=== PATIENT | female | born 2000 | race African-American/Black ===

== ENCOUNTER 2020-04-08 18:59 | Inpatient (IN) ==
[2020-04-08 19:30] LABS: Bacteria,Urine Occasional /HPF (Few); Bilirubin,Urine Negative (Negative); Blood, Urine Negative (Negative); Glucose,Urine (UA) Negative (Negative); Ketones,Urine Negative (Negative); Mucus,Urine Occasional /LPF (Occasional); Nitrite,Urine Negative (Negative); Protein,Urine Negative; RBC,Urine 2 /HPF (0-4); Squamous Epithelial Cell,Urine Occasional /HPF (0-10); Urine Appearance CLEAR (Clear); Urine Color Yellow (Yellow); Urine Specific Gravity 1.014 (1.001-1.035); WBC,Urine 3 /HPF (0-6)
[2020-04-08] MEDS ORDERED: ONDANSETRON 4 MG/2 ML VIAL IV PRN (19:46)
[2020-04-08] MEDS ORDERED: MEPERIDINE 50 MG/1 ML VIAL IV PRN (19:46)
[2020-04-08] MEDS ORDERED: LACTATED RINGERS 1,000 ML IV SCH (20:00)
[2020-04-08 20:18] LABS: Basophils % 0.3 % (0.0-0.8); Eosinophils # 0.3 10*3/uL (0.0-0.87); Eosinophils % 3.1 % (0.00-10.9); Hematocrit 29.3 VOL% (35.7-47.0); Hemoglobin 9.3 GM/DL (12.0-16.0); Immature Granulocytes % 1.4 %; Immature Granulocytes Absolute 0.15 #; Lymphocytes # 2.3 10*3/uL (1.4-4.0); Lymphocytes % 21.4 % (21.3-54.2); Mean Corpuscular HGB Conc 31.7 GM/DL (32-36); Mean Corpuscular Volume 75.7 FL (87-102); Mean Platelet Volume 11.3 FL (9.6-12.0); Monocytes % 9.1 % (1.7-12.7); Neutrophils % 64.7 % (38.7-73.9); Platelet Count 230 T/CUMM (130-400); Red Blood Count 3.87 MC/CUMM (3.8-5.5); Red Cell Distribution Width 14.5 % (9.3-17.3); White Blood Count 10.5 T/CUMM (4-12)
[2020-04-08] MEDS ORDERED: SODIUM CHLORIDE 0.9% 100 ML IV ONE (20:33)
[2020-04-08] MEDS ORDERED: AMPICILLIN 2,000 MG VIAL ONE (20:33)
[2020-04-08] MEDS ORDERED: AMPICILLIN INJ 2,000 MG in SODIUM CHLORIDE 0.9% 100 ML IV ONE (20:40)
[2020-04-08 20:43] LABS: Alanine Aminotransferase < 9 U/L (13-56); Albumin 2.6 G/DL (3.4-5.0); Alkaline Phosphatase 157 U/L (45-117); Aspartate Amino Transferase 9 U/L (0-37); Blood Urea Nitrogen 9 MG/DL (7-18); Calcium 8.9 MG/DL (8.5-10.1); Estimated Glom Filtration Rate 135 ML/MIN; Glucose 72 MG/DL (74-106); Osmolality,Calculated 270.8 MOS/KG (273-304); Total Protein 7.4 G/DL (6.4-8.3)
[2020-04-08] MEDS: BUTORPHANOL 2 MG/ML VIAL IV PRN ×2 (23:12→23:43)
[2020-04-09] MEDS ORDERED: CITRIC ACID/SODIUM CITRATE 30 ML UDCUP PO PRN (00:04)
[2020-04-09] MEDS ORDERED: FAMOTIDINE 20 MG/2 ML VIAL IV PRN (00:05)
[2020-04-09] MEDS ORDERED: ePHEDrine 50 MG/ML VIAL IV PRN (00:06)
[2020-04-09] MEDS ORDERED: fentaNYL 2 MCG/ROPIV 0.2% EPID 100 ML EPIDURAL SCH (00:30)
[2020-04-09] MEDS ORDERED: AMPICILLIN INJ 1,000 MG in SODIUM CHLORIDE 0.9% 100 ML IV SCH (00:30)
[2020-04-09] MEDS: BUTORPHANOL 2 MG/ML VIAL IV PRN (00:43)
[2020-04-09] MEDS ORDERED: OXYTOCIN/LR 20 UNIT/1,000 ML BAG IV ONE ×2 (01:04→01:17)
[2020-04-09] MEDS ORDERED: miSOPROStoL 200 MCG TABLET ONE (01:04)
[2020-04-09] MEDS ORDERED: CARBOPROST TROMETHAMINE 250 MCG/ML AMP IM ONE (01:05)
[2020-04-09] MEDS ORDERED: METHYLERGONOVINE 0.2 MG/1 ML AMP ONE (01:05)
[2020-04-09] MEDS ORDERED: LIDOCAINE 1% 50 ML VIAL ONE (01:24)
[2020-04-09 01:44] LABS: Cord Arterial Blood HCO3 22.8 MMOL/L
[2020-04-09 01:46] LABS: Cord Venous Blood PCO2 38.1 MMHG; Cord Venous Blood PO2 26.5 MMHG
[2020-04-09] MEDS ORDERED: ACETAMINOPHEN 325 MG TABLET PO PRN (02:50)
[2020-04-09] MEDS ORDERED: MEASLES/MUMPS/RUBELLA VACCINE 0.5 ML VIAL SUBCUT ONE (02:50)
[2020-04-09] MEDS ORDERED: DIPH/TET/ACEL PERT BOOSTER VACCINE 0.5 ML VIAL IM ONE (02:50)
[2020-04-09] MEDS ORDERED: HYDROCORTISONE 2.5% RECTAL CREAM 30 GM TUBE TOP PRN (02:50)
[2020-04-09] MEDS ORDERED: oxyCODONE/ACETAMINOPHEN 5-325 MG TABLET PO PRN ×2 (02:50)
[2020-04-09] MEDS ORDERED: LANOLIN 50% CREAM 0.3 OZ TUBE TOP PRN (02:50)
[2020-04-09] MEDS ORDERED: BISACODYL 10 MG SUPP RECTAL PRN (02:50)
[2020-04-09] MEDS ORDERED: RHO(D) IMMUNE GLOBULIN 300 MCG SYRINGE IM ONE (02:50)
[2020-04-09] MEDS ORDERED: WITCH HAZEL PADS 100/JAR TOP PRN (02:50)
[2020-04-09] MEDS ORDERED: BENZOCAINE 20%/MENTHOL 0.5% SPRAY 56 GM CAN TOP PRN (02:50)
[2020-04-09] MEDS: MULTIVITAMIN (PRENATAL) TABLET PO SCH (08:17)
[2020-04-09] MEDS: DOCUSATE SODIUM 100 MG CAPSULE PO SCH ×2 (08:17→22:32)
[2020-04-09] MEDS ORDERED: INFLUENZA VIRUS VACCINE 0.5 ML SYRINGE IM ONE (10:00)
[2020-04-09] MEDS: IBUPROFEN 800 MG TABLET PO PRN ×2 (12:31→22:32)
[2020-04-10 07:16] LABS: Basophils # 0.1 10*3/uL (0.0-0.2); Basophils % 0.4 % (0.0-0.8); Eosinophils # 0.5 10*3/uL (0.0-0.87); Eosinophils % 4.5 % (0.00-10.9); Hematocrit 29.3 VOL% (35.7-47.0); Hemoglobin 9.1 GM/DL (12.0-16.0); Immature Granulocytes % 1.6 %; Immature Granulocytes Absolute 0.18 #; Lymphocytes % 26.1 % (21.3-54.2); Mean Corpuscular HGB Conc 31.1 GM/DL (32-36); Mean Corpuscular Volume 76.9 FL (87-102); Mean Platelet Volume 11.4 FL (9.6-12.0); Monocytes % 10.3 % (1.7-12.7); Neutrophils % 57.1 % (38.7-73.9); Platelet Count 205 T/CUMM (130-400); Red Blood Count 3.81 MC/CUMM (3.8-5.5); Red Cell Distribution Width 14.7 % (9.3-17.3); White Blood Count 11.4 T/CUMM (4-12)
[2020-04-10] MEDS: DOCUSATE SODIUM 100 MG CAPSULE PO SCH ×3 (07:48→21:44)
[2020-04-10] MEDS: MULTIVITAMIN (PRENATAL) TABLET PO SCH ×2 (07:48→10:28)
[2020-04-10] MEDS: IBUPROFEN 800 MG TABLET PO PRN (13:54)
[2020-04-11] MEDS: MULTIVITAMIN (PRENATAL) TABLET PO SCH (07:30)
[2020-04-11] MEDS: DOCUSATE SODIUM 100 MG CAPSULE PO SCH (07:30)
[2020-04-11 11:23] VITALS: BP 136/69
== END 2020-04-11 18:45 | disposition home or self-care (01) | DRG 560 ==
LOC: N.LDOUT 18:59 → N.LD 19:01 → N.OB 04-10 07:15
PROVIDERS: ADMIT Obstetrics & Gynecology; ATTEND Obstetrics & Gynecology